=== PATIENT | female | born 1955 | race Caucasian/White ===

== ENCOUNTER → 2018-11-30 | Outpatient (CLI) | payer BC ==
[~2018-11-30] MED LIST: BUPR150T2 PO; DIPH50 PO; HYDHCL25 PO; METO100ER PO; METPRE4DP PO; MONT10T PO; PRED20 PO; SUMA6I SC; ZOLP10 PO
[2018-11-30 13:45] LABS: Source, Urine Clean Catch
[2018-11-30 15:09] LABS: Bilirubin, Urine Neg (Neg); Blood, Urine 2+ (Neg); Glucose Qualitative, Urine 2+ (Neg); Ketones, Urine Neg (Neg); Leukocyte Esterase, Urine 2+ (Neg); Nitrite, Urine Neg (Neg); Protein, Urine 1+ (Neg); Specific Gravity, Urine 1.015 (1.003-1.022); Urobilinogen, Urine NORM (Normal)
[2018-11-30 15:17] LABS: Appearance, Urine Clear (Clear); Color, Urine Yellow (P-Yellow)
[2018-11-30 15:20] LABS: Bacteria Few /hpf; Squamous Epithelial Cells Few /hpf (Few)
[2018-12-02 18:08] LABS: HPV 16 Negative (Negative); HPV 18 Negative (Negative); HPV OTHER HR TYPES Negative (Negative)
== END | disposition home or self-care (01) ==
LOC: LAB SHORT 11:52 → LAB 11:52
PROVIDERS: Obstetrics & Gynecology
DX: Z01.419 Encounter for gynecological examination (general) (routine) without abnormal findings (principal); R32 Unspecified urinary incontinence
CPT/HCPCS: 81001; 87077; 87086; 87186; 87624; G0123

== ENCOUNTER → 2018-12-13 | Outpatient (CLI) | payer BC ==
[2018-12-13 11:36] LABS: Source, Urine Clean Catch
[2018-12-13 12:40] LABS: Appearance, Urine Hazy (Clear); Bilirubin, Urine Neg (Neg); Blood, Urine 3+ (Neg); Color, Urine Yellow (P-Yellow); Glucose Qualitative, Urine 2+ (Neg); Ketones, Urine Neg (Neg); Leukocyte Esterase, Urine 3+ (Neg); Nitrite, Urine Neg (Neg); Protein, Urine 1+ (Neg); Specific Gravity, Urine 1.015 (1.003-1.022); Urobilinogen, Urine NORM (Normal)
[2018-12-13 13:05] LABS: White Blood Cells, Urine TNTC /hpf (0-5)
[2018-12-13 13:06] LABS: Bacteria Many /hpf; Red Blood Cells, Urine 25-50 /hpf (0-2); Squamous Epithelial Cells Mod /hpf (Few)
[2018-12-13 13:07] LABS: Amorphous Light (0-Heavy); Transitional Epithelial Cells Rare /hpf (0-Rare)
== END | disposition home or self-care (01) ==
LOC: LAB 09:10 → LAB SHORT 09:10
PROVIDERS: Obstetrics & Gynecology
DX: R30.0 Dysuria (principal)
CPT/HCPCS: 81001; 87077; 87086; 87147; 87186

== ENCOUNTER → 2019-08-30 | Outpatient (CLI) | payer BC, SELFPAY | LOC: LAB 18:11 → LAB SHORT 18:11 | DX: R35.0 Frequency of micturition (principal) | CPT/HCPCS: 87077; 87086; 87186 ==

== ENCOUNTER → 2020-05-13 | Outpatient (CLI) | payer BC ==
[~2020-05-13] MED LIST changes: +ATOR40TA PO; +DULO30 PO; +DYAZIDE 37.5-21 EACH PO; +Dyazide 37.5/251 EA; +GLIP5ER; +JANUMET XR 1001 EAC1 PO; +K-Dur20 MEQ; +LEVO-T50 MC1 PO; +LOSA50 PO; +NEBI10 PO
[2020-05-13 12:15] LABS: Appearance, Urine Hazy (Clear); Bilirubin, Urine Neg (Neg); Blood, Urine 5+ (Neg); Color, Urine Yellow (P-Yellow); Glucose Qualitative, Urine Neg (Neg); Ketones, Urine Neg (Neg); Leukocyte Esterase, Urine 3+ (Neg); Nitrite, Urine Pos (Neg); Protein, Urine 1+ (Neg); Urobilinogen, Urine NORM (Normal)
[2020-05-13 12:34] LABS: Bacteria Many /hpf; Squamous Epithelial Cells Few /hpf (Few); White Blood Cells, Urine 50-100 /hpf (0-5)
== END | disposition home or self-care (01) ==
LOC: LAB SHORT 10:32 → LAB 10:32
PROVIDERS: Internal Medicine
DX: R30.0 Dysuria (principal)
CPT/HCPCS: 81001; 87077; 87086; 87186

== ENCOUNTER → 2020-06-17 | Outpatient (CLI) | payer BC ==
[2020-06-17 13:46] LABS: Source, Urine Clean Catch
[2020-06-17 15:08] LABS: Bilirubin, Urine Neg (Neg); Blood, Urine 1+ (Neg); Glucose Qualitative, Urine Neg (Neg); Ketones, Urine Neg (Neg); Leukocyte Esterase, Urine Neg (Neg); Nitrite, Urine Neg (Neg); Protein, Urine Neg (Neg); Urobilinogen, Urine NORM (Normal); pH, Urine 6.5 (5.0-8.0)
[2020-06-17 15:35] LABS: Appearance, Urine Clear (Clear); Color, Urine Pale Yellow (P-Yellow)
[2020-06-17 15:36] LABS: White Blood Cells, Urine Not Seen /hpf (0-5)
[2020-06-17 15:37] LABS: Bacteria Rare /hpf; Red Blood Cells, Urine Not Seen /hpf (0-2); Squamous Epithelial Cells Rare /hpf (Few)
== END | disposition home or self-care (01) ==
LOC: LAB SHORT 13:44 → OLS 13:44 → LAB FUT 06-07 16:50
PROVIDERS: Internal Medicine
DX: R31.29 Other microscopic hematuria (principal)
CPT/HCPCS: 81001

== ENCOUNTER → 2020-10-24 | Outpatient (CLI) | payer BC ==
[2020-10-24 10:07] LABS: Source, Urine Clean Catch
[2020-10-24 12:58] LABS: Appearance, Urine Clear (Clear); Bilirubin, Urine Neg (Neg); Blood, Urine 3+ (Neg); Color, Urine Yellow (P-Yellow); Glucose Qualitative, Urine Neg (Neg); Ketones, Urine Neg (Neg); Leukocyte Esterase, Urine 1+ (Neg); Nitrite, Urine Neg (Neg); Protein, Urine Neg (Neg); Specific Gravity, Urine 1.015 (1.003-1.022); Urobilinogen, Urine NORM (Normal)
[2020-10-24 13:16] LABS: White Blood Cells, Urine 0-2 /hpf (0-5)
[2020-10-24 13:17] LABS: Bacteria Few /hpf; Squamous Epithelial Cells Rare /hpf (Few)
== END | disposition home or self-care (01) ==
LOC: PLD 10:06
PROVIDERS: Internal Medicine
DX: N39.0 Urinary tract infection, site not specified (principal)
CPT/HCPCS: 81001; 87086

== ENCOUNTER → 2021-11-12 | Outpatient (CLI) | payer BC | LOC: LAB SHORT 15:39 | DX: R30.0 Dysuria (principal) | CPT/HCPCS: 87077; 87086; 87186 ==

== ENCOUNTER 2023-06-29 13:20 | Day surgery (SDC) | payer BC ==
[~2023-06-29] VITALS: Ht 157.5 cm; Wt 80.2 kg
[2023-06-29] MEDS ORDERED: Acerola C500 MG (13:50)
--- NOTE | 2023-06-29 14:02 | NUR ---
06/29/23 1402 Mariam Rey TETRACAINE DROP IN LEFT EYE AT 1347. PLEDGET PLACED IN LEFT EYE AT 1348 PATIENT TOLERATED WELL.
[2023-06-29 15:16] VITALS: BP 100/66
--- NOTE | 2023-06-29 15:24 | NUR ---
06/29/23 1524 Ignacia Taylor IV REMOVED, CANNULA INTACT, PT PAN WELL. PT DENIES NAUSEA AND PAIN.
== END 2023-06-29 15:34 | disposition home or self-care (01) ==
LOC: ORSCSDS 13:20
PROVIDERS: Ophthalmology
PROC: 08RK3JZ Replacement of Left Lens with Synthetic Substitute, Percutaneous Approach (ICD-10-PCS; principal; 2023-06-29 14:30)
DX: H25.13 Age-related nuclear cataract, bilateral (principal); H52.202 Unspecified astigmatism, left eye; I10 Essential (primary) hypertension; E11.9 Type 2 diabetes mellitus without complications; Z79.84 Long term (current) use of oral hypoglycemic drugs; E78.00 Pure hypercholesterolemia, unspecified; Z79.899 Other long term (current) drug therapy
CPT/HCPCS: 82947; J2250; J3010; J3301; J7040; V2632

== ENCOUNTER 2023-07-06 14:48 | Day surgery (SDC) | payer BC ==
[~2023-07-06] VITALS: Ht 157.5 cm; Wt 79.8 kg
[~2023-07-06 14:48] MED LIST changes: +Acerola C500 MG
--- NOTE | 2023-07-06 15:44 | NUR ---
07/06/23 1544 Reina Flores CORRECT EYE MARKED ON RIGHT EYE PER CONCENT AND PATIENT. TETRACAINE ADDED TO RIGHT EYE AT 1524. PLEGET PLACED IN RIGHT EYE AT 1526. PT TOLERATED WELL. AT BEDSIDE WITH PATIENT.
[2023-07-06 16:17] VITALS: BP 99/59
--- NOTE | 2023-07-06 16:25 | NUR ---
07/06/23 1625 Misha Juarez IV REMOVED W/O DIFF. PAN WELL. CANNULA INTACT.
== END 2023-07-06 16:30 | disposition home or self-care (01) ==
LOC: ORSCSDS 14:48
PROVIDERS: Ophthalmology
PROC: 08RJ3JZ Replacement of Right Lens with Synthetic Substitute, Percutaneous Approach (ICD-10-PCS; principal; 2023-07-06 16:00)
DX: E11.36 Type 2 diabetes mellitus with diabetic cataract (principal); H25.11 Age-related nuclear cataract, right eye; Z96.1 Presence of intraocular lens; H52.201 Unspecified astigmatism, right eye; I10 Essential (primary) hypertension; E78.00 Pure hypercholesterolemia, unspecified; E03.9 Hypothyroidism, unspecified; F90.9 Attention-deficit hyperactivity disorder, unspecified type; Z79.4 Long term (current) use of insulin; Z79.899 Other long term (current) drug therapy
CPT/HCPCS: 82947; J2250; J3010; J3301; J7040; V2632